=== PATIENT | male | born 1990 | race Caucasian/White ===

== ENCOUNTER 2017-04-19 08:34 | Emergency (ER) | payer OTHER ==
[~2017-04-19] VITALS: Ht 170.2 cm; Wt 104.5 kg
[2017-04-19] MEDS ORDERED: OXYMETAZOLINE HCL 0.05% 15 ML NASAL SPRAY NASAL ONE (09:00)
[2017-04-19] MEDS ORDERED: SILVER NITRATE APPLICATOR 1 EA STICK TP ONE (09:00)
[2017-04-19 09:21] VITALS: BP 129/90
== END 2017-04-19 09:39 | disposition home or self-care (01) ==
LOC: EMS 08:35
DX: R04.0 Epistaxis (principal); R05 Cough; I10 Essential (primary) hypertension; F17.210 Nicotine dependence, cigarettes, uncomplicated; Z91.013 Allergy to seafood
CPT/HCPCS: 30901; 99283; 99284